=== PATIENT | female | born 1960 | race Caucasian/White ===

== ENCOUNTER 2016-08-29 08:21 | Emergency (ER) | payer MEDICAID ==
[~2016-08-29] VITALS: Ht 165.1 cm; Wt 90.0 kg
[2016-08-29 11:01] LABS: HEMATOCRIT. 47.2 % (36.0-48.0); MEAN CORPUSCULAR HEMOGLOBIN 27.4 pg (28.0-32.0); MEAN CORPUSCULAR HGB CONC 33.8 g/dL (31.0-37.0); MEAN CORPUSCULAR VOLUME 80.9 fL (81.0-99.0); MEAN PLATELET VOLUME 8.3 fl (7.4-10.4); PLATELET 259 x1000/uL (130-400); RED BLOOD CELL COUNT 5.84 mill/uL (4.2-5.4); WHITE BLOOD COUNT 10.7 x1000/uL (4.5-11.0)
[2016-08-29 11:02] LABS: DIFFERENTIAL COMMENT 1
[2016-08-29] MEDS ORDERED: SODIUM CHLORIDE 0.9% 1,000 ML IV ONE (11:06)
[2016-08-29 11:12] LABS: CLARITY URINE CLOUDY (CLEAR); COLOR URINE YELLOW (YELLOW); GLUCOSE URINE NEGATIVE (NEGATIVE); KETONES URINE NEGATIVE (NEGATIVE); LEUKOCYTE ESTERASE URINE TRACE (NEGATIVE); NITRITE URINE NEGATIVE (NEGATIVE); OCCULT BLOOD URINE NEGATIVE (NEGATIVE); PH URINE 7.5 (4.5-8.0); PROTEIN URINE 1+ (NEGATIVE); SPECIFIC GRAVITY URINE 1.023 (1.005-1.030)
[2016-08-29] MEDS ORDERED: TRAMADOL 50MG TABLET PO ONE (11:15)
[2016-08-29] MEDS ORDERED: ONDANSETRON HCL 4MG/2ML VIAL IV ONE (11:15)
[2016-08-29 11:16] LABS: ALANINE AMINOTRANSFERASE 28 IU/L (13-61); ALBUMIN 3.9 g/dL (3.4-5.0); ANION GAP 11; CALCIUM 9.2 mg/dL (8.5-10.1); CARBON DIOXIDE 29 mEq/L (21-32); CHLORIDE 103 mEq/L (98-107); INDEX HEMOLYSI 1 (1-3); INDEX ICTERIC 1 (1-4); INDEX LIPEMIC 1 (1-3); UREA NITROGEN BLOOD 12 mg/dL (7-21); eGFR > 60 mL/min (>60)
[2016-08-29 11:24] LABS: BACTERIA URINE 2+; SQUAMOUS EPITHELIAL CELL URINE 1+ /lpf (RARE/1+)
[2016-08-29 11:25] LABS: RBC URINE 0-2 /hpf (0-2); WBC URINE 0-2 /hpf (0-2)
[2016-08-29 12:27] LABS: PLATELET ESTIMATE NORMAL
[2016-08-29] MEDS ORDERED: ACETAMINOPHEN 500MG TABLET PO NR (13:30)
[2016-08-29] MEDS ORDERED: LEVOFLOXACIN 250MG TABLET PO ONE (14:15)
[2016-08-29 17:49] VITALS: BP 156/88
== END 2016-08-29 19:17 | disposition home or self-care (01) ==
LOC: ER 08:49
DX: J18.9 Pneumonia, unspecified organism (principal); N39.0 Urinary tract infection, site not specified; R10.84 Generalized abdominal pain; I10 Essential (primary) hypertension; E11.9 Type 2 diabetes mellitus without complications
CPT/HCPCS: 36415; 71010; 80053; 80301; 81001; 81025; 83690; 85025; 87040; 87804; 96361; 96374; 99285; G0482; J2405; J7030; Z7610